=== PATIENT | male | born 2000 | race Caucasian/White ===

== ENCOUNTER 2018-06-17 20:32 | Emergency (ER) | payer BC ==
[~2018-06-17] VITALS: Ht 177.8 cm; Wt 77.1 kg
[~2018-06-17 20:32] MED LIST: ACETAMINOPHEN-1 EAC1 PO; IBUPROFEN 800800 M1 PO; KEFLEX500 MG PO; NEOMYC-POLYM-GR10 ML INTRAOCULR; NOHOMEMEDICATIONS; NORCO 5-325 TA1 EACH PO; PENICILLIN V P500 MG PO
[2018-06-17] MEDS ORDERED: ATIVAN0.5 MG PO (21:46)
[2018-06-17] MEDS ORDERED: HYDROXYZINE HCL25 M2 PO (21:46)
[2018-06-17 21:55] VITALS: BP 134/78
--- NOTE | 2018-06-18 12:26 | EKG ---
[place] [address] ELECTROCARDIOGRAM REPORT Name: ITALO RIVERA Room: [facility]#: [id number] Admission: 06/17/18 Attend Phys: Discharge: 06/17/18 Date of : [birth year] Report #: [id number] THIS REPORT FOR: //name// [facility] ED Test Date: 2018-06-17 Test Time: 21:03:13 Pat Name: SALMAWILLIE NICOLE Department: Room: Gender: Engineering Aid: : 2000 Requested By: Alexia Fortune Order Number: [id number] MD: Alexandru Ferris Measurements Intervals Lavinia Rate: 81 P: 21 NV: 161 QRS: 82 QRSD: 102 T: 18 QT: 345 QTc: 401 Interpretive Statements Sinus rhythm Borderline Q waves in inferior leads Borderline T wave abnormalities ST elev, probable normal early repol pattern Baseline wander in lead(s) V1 No previous ECG available for comparison Electronically Signed On 06-18-2018 12:26:01 SKI PATROLLER by Alexandru Ferris [email or web address] <ELECTRONICALLY SIGNED> By: Alexandru Ferris MD, [facility] 06/18/18 1226 02 02 Alexandru Ferris MD, [facility] /EPI
== END 2018-06-17 21:55 | disposition home or self-care (01) ==
LOC: M.ERS 20:32
DX: F41.9 Anxiety disorder, unspecified (principal)

== ENCOUNTER 2018-07-23 00:55 | Emergency (ER) | payer BC ==
[~2018-07-23] VITALS: Ht 177.8 cm; Wt 81.7 kg
[~2018-07-23 00:55] MED LIST changes: +ATIVAN0.5 MG PO; +HYDROXYZINE HCL25 M2 PO
[2018-07-23] MEDS ORDERED: SERTRALINE HCL50 MG (01:02)
[2018-07-23 02:47] VITALS: BP 121/55
== END 2018-07-23 02:47 | disposition home or self-care (01) ==
LOC: M.ERS 00:55
DX: F41.9 Anxiety disorder, unspecified (principal)

== ENCOUNTER 2021-02-23 09:03 | Emergency (ER) | payer OTHER ==
[~2021-02-23] VITALS: Ht 177.8 cm; Wt 79.4 kg
[~2021-02-23 09:03] MED LIST changes: +SERTRALINE HCL50 MG
[2021-02-23] MEDS ORDERED: IBUPROFEN 800800 MG PO (10:02)
[2021-02-23 10:10] VITALS: BP 118/69
== END 2021-02-23 10:10 | disposition home or self-care (01) ==
LOC: M.ERS 09:03
DX: S60.221A Contusion of right hand, initial encounter (principal); F41.9 Anxiety disorder, unspecified; W22.01XA Walked into wall, initial encounter; Y93.89 Activity, other specified; Y92.89 Other specified places as the place of occurrence of the external cause; Y99.8 Other external cause status